=== PATIENT | male | born 1955 | race Caucasian/White ===

== ENCOUNTER 2020-10-14 18:56 | Emergency (ER) | payer OTHER ==
[~2020-10-14] VITALS: Ht 180.3 cm; Wt 77.1 kg
[~2020-10-14 18:56] MED LIST: ASPI81CT95 PO; GLU500 PO; LIPITOR; [UNRECOGNIZED DRUG - REMARK]
--- NOTE | 2020-10-14 18:56 | NUR ---
Patient BIBA ALS, transferred to bed 4. RN evaluating the patient at bedside.
--- NOTE | 2020-10-14 18:59 | NUR ---
Dr. Bailey is evaluating the patient at bedside.
[2020-10-14] MEDS ORDERED: NACL 0.9% 1,000 ML IV ONE (19:05)
[2020-10-14 19:11] VITALS: BP 142/91
[2020-10-14 19:18] VITALS: BP 142/91
--- NOTE | 2020-10-14 19:18 | NUR ---
Patient does not wish to proceed with medical care recommended by MD RENE. Patient given information related to possible complications, up to and including , which could occur as a result of leaving hospital at this time. Patient verbalizes understanding of risks involved leaving against medical advice. Patient has signed AMA form.
== END 2020-10-14 19:18 | disposition left against medical advice (07) ==
LOC: MED 18:56
DX: E11.65 Type 2 diabetes mellitus with hyperglycemia (principal); I11.9 Hypertensive heart disease without heart failure; F12.10 Cannabis abuse, uncomplicated
CPT/HCPCS: 82948; 99283